=== PATIENT | female | born 1990 | race African-American/Black ===

== ENCOUNTER 2017-09-06 00:43 | Emergency (ER) | payer MEDICARE, OTHER ==
[~2017-09-06] VITALS: Ht 165.1 cm; Wt 81.6 kg
--- NOTE | 2017-09-06 01:03 | NUR ---
Dr. Melendez at bedside for MSE.
[2017-09-06] MEDS ORDERED: HYDROCODONE/APAP 5-325MG TABLET ONE ×2 (01:13→01:23)
[2017-09-06] MEDS ORDERED: HYDROCODONE/APAP 5-325MG TABLET PO ONE ×2 (01:15→01:30)
[2017-09-06] MEDS ORDERED: KETOROLAC TROMETHAMINE 30 MG INJ ONE (01:25)
[2017-09-06] MEDS ORDERED: KETOROLAC TROMETHAMINE 30 MG INJ IM ONE (01:30)
--- NOTE | 2017-09-06 01:36 | NUR ---
Patient discharged to home in stable conditon. Pt states she is feeling better. Written and verbal after care instructions given. Patient verbalizes understanding of instructions. Patient ambulated out of ER with steady gait, no acute signs of distress, VSS, all belongings taken.
[2017-09-06 01:38] VITALS: BP 104/66
== END 2017-09-06 01:38 | disposition home or self-care (01) ==
LOC: ER 00:50
DX: L72.3 Sebaceous cyst (principal); L08.9 Local infection of the skin and subcutaneous tissue, unspecified; Z88.8 Allergy status to other drugs, medicaments and biological substances
CPT/HCPCS: A4663; J1885